=== PATIENT | female | born 1980 | race Caucasian/White ===

== ENCOUNTER 2019-12-21 22:37 | Emergency (ER) | payer BC ==
[2019-12-21] MEDS ORDERED: Ondansetron 4 MG Tab.DIS PO ONE ×2 (22:38→23:04)
[2019-12-21 22:40] VITALS: BP 122/62; PULSE 109
[2019-12-21] MEDS ORDERED: Acetaminophen 500 MG Tab PO ONE (23:04)
--- NOTE | 2019-12-21 23:11 | EDM.PDOC ---
ED HPI GENERAL MEDICAL PROBLEM - General Chief Complaint: General Stated Complaint: fever,cough,nausea,malaise Time Seen by Provider: 12/21/19 23:00 Source of Information: Reports: Patient History Limitations: Reports: No Limitations - History of Present Illness INITIAL COMMENTS - FREE TEXT/NARRATIVE: This patient is a 39 year old female that presents to the ER. Patient reports that on Sunday she didnt feel great, then today at 4pm "hit me like a ton of bricks". She reports that she started to have headache, body aches, congestion, nonproductive cough, nausea, vomiting, abdominal pain from vomiting, fever. 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 Also, patient reports her daughter has same symptoms. Onset Date: 12/19/19 Duration: Day(s): (2), Getting Worse Quality: Reports: Ache Severity: Moderate Improves with: Reports: None Worsens with: Reports: None Associated Symptoms: Reports: Cough, Fever/Chills, Headaches, Loss of Appetite, Malaise, Nausea/Vomiting. 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 Generalized Pain Score (Numeric/FACES): 8 - Related Data Allergies Allergy/AdvReac Type Severity Reaction Status Date / Time Sulfa (Sulfonamide Allergy Swelling Verified 12/21/19 22:41 Antibiotics) Home Meds: Home Meds Venlafaxine HCl [Venlafaxine ER] 1 cap PO DAILY 12/21/19 [History] Ondansetron [Zofran ODT] 4 mg PO Q6H PRN #20 tab.dis 12/22/19 [Rx] Oseltamivir [Tamiflu] 75 mg PO BID #9 cap 12/22/19 [Rx] Past Medical History Genitourinary History: Reports: Renal Calculus, UTI, Recurrent Other Genitourinary History: pt states that she generally has multiple bladder infections per year 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 Denies: Sputum Cardiovascular: Reports: No Symptoms Endocrine: Reports: No Symptoms GI/Abdominal: Reports: Abdominal Pain, Nausea, Vomiting. Denies: Diarrhea : Reports: No Symptoms Musculoskeletal: Reports: Other (body aches) Skin: Reports: No Symptoms Neurological: Reports: Headache. Denies: Confusion Psychiatric: Reports: No Symptoms Hematologic/Lymphatic: Reports: No Symptoms Immunologic: Reports: No Symptoms ED EXAM, GENERAL - Physical Exam Exam: See Below Exam Limited By: No Limitations General Appearance: Alert, WD/WN, No Apparent Distress, Other (acutely ill) Eye Exam: Bilateral Eye: Normal Inspection, PERRL Ears: Normal External Exam, Normal Canal, Hearing Grossly Normal, Normal TMs Ear Exam: Bilateral Ear: Auricle Normal, Canal Normal, TM normal Nose: Normal Inspection, Normal Mucosa, No Blood Throat/Mouth: Normal Inspection, Normal Lips, Normal Teeth, Normal Gums, Normal Oropharynx, Normal Voice, No Airway Compromise Head: Atraumatic, Normocephalic Neck: Normal Inspection, Supple, Non-Tender, Full Range of Motion Respiratory/Chest: No Respiratory Distress, Lungs Clear, Normal Breath Sounds, No Accessory Muscle Use Cardiovascular: Normal Peripheral Pulses, No Edema, No Gallop, No JVD, No Murmur , No Rub, Tachycardia (106 on exam) GI/Abdominal: Normal Bowel Sounds, Soft, No Organomegaly, No Distention, No Abnormal Bruit, No Mass, Pelvis Stable, Tender (LLQ mild. ). No: Guarding, Rigid, Rebound Back Exam: Normal Inspection, Full Range of Motion. No: CVA Tenderness (L), CVA Tenderness (R) Extremities: Normal Inspection, Normal Range of Motion, Non-Tender, No Pedal Edema, Normal Capillary Refill Neurological: Alert, Oriented Psychiatric: Normal Affect, Normal Mood Skin Exam: Warm, Dry, Intact, Normal Color, No Rash Lymphatic: No Adenopathy Course - Vital Signs Last Recorded V/S: Last Vital Signs Temp 102.6 F H 12/21/19 23:55 Pulse 109 H 12/21/19 22:37 Resp 16 12/21/19 22:37 BP 122/62 12/21/19 22:37 Pulse Ox 98 12/21/19 22:37 - Orders/Labs/Meds Orders: Active Orders 24 hr Category Date Time Status Oseltamivir [Tamiflu] Med 12/22/19 00:19 Once 75 mg PO ONETIME ONE Sodium Chloride 0.9% [Normal Saline] 1,000 ml Med 12/21/19 23:29 Active IV .BOLUS Medication Orders Sodium Chloride (Normal Saline) 1,000 mls @ 1,000 mls/hr IV .BOLUS ONE Stop: 12/22/19 00:28 Last Admin: 12/21/19 23:41 Dose: 1,000 mls/hr Labs: Laboratory Tests 12/21/19 12/21/19 12/21/19 Range/Units 23:21 23:21 23:30 WBC 5.4 (5.0-10.0) 10^3/uL RBC 4.22 (4.00-5.50) 10^6/uL Hgb 13.0 (12.0-16.0) g/dL Hct 38.8 (37.0-47.0) % MCV 91.9 (82.0-94.0) fL MCH 30.8 (27.0-32.0) pg MCHC 33.5 (33.0-38.0) g/dL RDW Coeff of Cecilia 12.6 (11.0-15.0) % Plt Count 164 (150-400) 10^3/uL Neut % (Auto) 80.8 (35-85) % Lymph % (Auto) 9.1 L (10-55) % [place] % (Auto) 9.7 (0-16) % Eos % (Auto) 0.2 (0-5) % Baso % (Auto) 0.2 (0-3) % Neut # (Auto) 4.33 (1.80-7.00) 10^3/uL Lymph # (Auto) 0.49 L (1.00-4.80) 10^3/uL [place] # (Auto) 0.52 (0.00-0.80) 10^3/uL Eos # (Auto) 0.01 (0.00-0.45) 10^3/uL Baso # (Auto) 0.01 10^3/uL Sodium 139 (136-145) mEq/L Potassium 3.3 L (3.5-5.0) mEq/L Chloride 102 (98-106) mEq/L Carbon Dioxide 24 (21-32) mmol/L BUN 9 (7-18) mg/dL Creatinine 0.7 (0.6-1.0) mg/dL Est Cr Clr Drug Dosing 117.39 mL/min Estimated GFR (MDRD) > 60 (>=60) mL/min Glucose 107 H (75-99) mg/dL Calcium 7.8 L (8.4-10.1) mg/dL Total Bilirubin 0.3 (0.0-1.0) mg/dL AST 18 (15-37) U/L ALT 16 (12-78) U/L Alkaline Phosphatase 54 (46-116) U/L Total Protein 6.6 (6.4-8.2) g/dL Albumin 3.5 (3.4-5.0) g/dL Amylase 42 (25-115) U/L Lipase 56 L (73-393) U/L Urine Color Yellow (YELLOW) Urine Appearance Clear (CLEAR) Urine pH 8.5 H (4.5-8.0) Ur Specific [place] 1.020 (1.003-1.020) Urine Protein Negative (NEGATIVE) mg/dL Urine Glucose (UA) Negative (NEGATIVE) mg/dL Urine Ketones Negative (NEGATIVE) mg/dL Urine Occult Blood Trace-intact H (NEGATIVE) Urine Nitrite Negative (NEGATIVE) Urine Bilirubin Negative (NEGATIVE) Urine Urobilinogen 1.0 (0.2-1.0) EU/dL Ur Leukocyte Esterase Negative (NEGATIVE) Meds: Medications Generic Name Dose Route Start Last Admin Trade Name Freq PRN Reason Stop Dose Admin Sodium Chloride 1,000 mls @ 1,000 mls/hr 12/21/19 23:29 12/21/19 23:41 Normal Saline IV 12/22/19 00:28 1,000 mls/hr .BOLUS ONE Administration Discontinued Medications Generic Name Dose Route Start Last Admin Trade Name Freq PRN Reason Stop Dose Admin Acetaminophen 1,000 mg 12/21/19 23:04 12/21/19 23:12 Tylenol Extra Strength PO 12/21/19 23:05 1,000 mg ONETIME ONE Administration Ondansetron HCl 4 mg 12/21/19 23:04 12/21/19 23:12 Zofran Odt PO 12/21/19 23:05 4 mg ONETIME ONE Administration Ondansetron HCl 1 packet 12/22/19 00:18 Take Home: Ondansetron Odt 4 Mg, 2 Tab Pack PO 12/22/19 00:19 ONETIME ONE Departure - Departure Time of Disposition: 00:20 Disposition: Home, Self-Care 01 Condition: Fair Clinical Impression: Viral gastroenteritis - Discharge Information *PRESCRIPTION DRUG MONITORING PROGRAM REVIEWED*: Not Applicable *COPY OF PRESCRIPTION DRUG MONITORING REPORT IN PATIENT KELVIN: Not Applicable Prescriptions: Ondansetron [Zofran ODT] 4 mg PO Q6H PRN #20 tab.dis PRN Reason: Nausea/Vomiting Oseltamivir [Tamiflu] 75 mg PO BID #9 cap Instructions: Viral Gastroenteritis, Adult, Influenza, Adult, [id number] Referrals: PCP,None [Primary Care Provider] - Forms: ED Department Discharge Additional Instructions: Followup with your primary care provider Return to the ER for worsening of condition or any emergent concerns Increase fluids Over the counter medications Tylenol or Motrin for fever Tamiflu 75mg 1 pill twice a day for 5 days Sent to pharmacy Zofran 4mg 1 pill every 6 hours as needed for nausea or vomiting dissolve under the tongue #20 no refill sent to pharmacy #2 take home Sepsis Event Note - Evaluation Sepsis Screening Result: Possible Sepsis Risk - Focused Exam Vital Signs: Vital Signs Temp Temp Pulse Resp BP Pulse Ox 12/21/19 23:55 102.6 F H 12/21/19 23:12 102.4 F H 102.4 F H 12/21/19 22:37 102.3 F H 109 H 16 122/62 98 Date Exam was Performed: 12/22/19 Time Exam was Performed: 00:19 - My Orders Last 24 Hours: My Active Orders 12/21/19 23:29 Sodium Chloride 0.9% [Normal Saline] 1,000 ml IV .BOLUS 12/22/19 00:19 Oseltamivir [Tamiflu] 75 mg PO ONETIME ONE - Assessment/Plan Last 24 Hours: My Active Orders 12/21/19 23:29 Sodium Chloride 0.9% [Normal Saline] 1,000 ml IV .BOLUS 12/22/19 00:19 Oseltamivir [Tamiflu] 75 mg PO ONETIME ONE Plan: PLEASE SEE RN NOTE FOR PFSH
[2019-12-21] MEDS ORDERED: Sodium Chloride 0.9% 1,000 ML IV ONE (23:29)
[2019-12-21 23:44] LABS: CHLORIDE,CL 102 mEq/L (98-106); SODIUM,NA 139 mEq/L (136-145)
[2019-12-22] MEDS ORDERED: Take Home: Ondansetron 4 MG Tab.DIS, 2 Tab Pack PO ONE (00:18)
[2019-12-22] MEDS ORDERED: Oseltamivir 75 MG Cap PO ONE (00:19)
== END 2019-12-22 00:50 | disposition home or self-care (01) ==
LOC: CC.ED 22:37
DX: A08.4 Viral intestinal infection, unspecified (principal); F32.9 Major depressive disorder, single episode, unspecified; Z79.899 Other long term (current) drug therapy; Z88.2 Allergy status to sulfonamides
CPT/HCPCS: 36415; 80053; 81003; 82150; 83690; 85025; 87804; 96360; 99284-25; A9270-GY; J7030

== ENCOUNTER 2020-04-30 09:04 | Emergency (ER) | payer BC ==
[2020-04-30 09:18] VITALS: BP 130/75; PULSE 88
[2020-04-30 10:01] LABS: CHLORIDE,CL 104 mEq/L (98-106); SODIUM,NA 138 mEq/L (136-145)
--- NOTE | 2020-04-30 10:33 | EDM.PDOC ---
ED HPI GENERAL MEDICAL PROBLEM - General Chief Complaint: General Stated Complaint: SIDE PAIN Time Seen by Provider: 04/30/20 09:31 Source of Information: Reports: Patient History Limitations: Reports: No Limitations - History of Present Illness INITIAL COMMENTS - FREE TEXT/NARRATIVE: Shena is a 39 yo female with no significant PMH who presents to the Ed with c/o pain under left breast. She reports pain began during the night last night and has continued since. She reports that pain is worse with deep breathing. Rates pain 5/10 at rest and 9/10 with deep breathing. She reports sharp pain when taking a deep breath and burning/aching pain constant. She denies any other CP, fever, malaise, shortness of breath, N/V/D, urinary symptoms, hematuria. Denies any other symptoms. She has not tried anything for the pain. Onset Date: 04/30/20 Duration: Constant Location: Reports: Other (under left breast, radiating around to left side) Front/Back Body Image: 1 - pain Quality: Reports: Ache, Burning, Sharp (intermittently) Improves with: Reports: None Worsens with: Reports: Breathing Associated Symptoms: Reports: No Other Symptoms. Denies: Confusion, Chest Pain, Cough, Diaphoresis, Fever/Chills, Headaches, Loss of Appetite, Malaise, Nausea/Vomiting, Shortness of Breath, Weakness Left Upper Breast Pain Score (Numeric/FACES): 5 - Related Data Allergies Allergy/AdvReac Type Severity Reaction Status Date / Time Sulfa (Sulfonamide Allergy Swelling Verified 04/30/20 09:11 Antibiotics) Home Meds: Home Meds Venlafaxine HCl [Venlafaxine ER] 1 cap PO BEDTIME 12/21/19 [History] Pantoprazole Sodium [Protonix] 40 mg PO DAILY #30 tablet. 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 ED EXAM, GENERAL - Physical Exam Exam: See Below Exam Limited By: No Limitations General Appearance: Alert, WD/WN, No Apparent Distress Eye Exam: Bilateral Eye: EOMI, PERRL Throat/Mouth: Normal Inspection, Normal Lips, Normal Teeth, Normal Gums, Normal Oropharynx, Normal Voice, No Airway Compromise Head: Atraumatic, Normocephalic Neck: Normal Inspection, Supple, Non-Tender, Full Range of Motion Respiratory/Chest: No Respiratory Distress, Lungs Clear, Normal Breath Sounds, No Accessory Muscle Use, Chest Non-Tender Cardiovascular: Normal Peripheral Pulses, Regular Rate, Rhythm, No Edema, No Ga llop, No JVD, No Murmur, No Rub GI/Abdominal: Normal Bowel Sounds, Soft, Tender (epigastric ). No: Guarding, Rigid, Rebound Back Exam: Normal Inspection, Full Range of Motion. No: CVA Tenderness (L), CVA Tenderness (R), Decreased Range of Motion, Muscle Spasm, Paraspinal Tenderness, Vertebral Tenderness Extremities: Normal Inspection, Normal Range of Motion, Non-Tender, Normal Capillary Refill, No Pedal Edema Neurological: Alert, Oriented, CN II-XII Intact, Normal Cognition, Normal Gait, Normal Reflexes, No Motor/Sensory Deficits Psychiatric: Normal Affect, Normal Mood Skin Exam: Warm, Dry, Intact, Normal Color, No Rash Lymphatic: No Adenopathy Course - Vital Signs Last Recorded V/S: Last Vital Signs Temp 98.0 F 04/30/20 09:13 Pulse 88 04/30/20 09:13 Resp 16 04/30/20 09:13 BP 130/75 04/30/20 09:13 Pulse Ox 98 04/30/20 09:13 - Orders/Labs/Meds Labs: Laboratory Tests 04/30/20 04/30/20 04/30/20 Range/Units 09:28 09:40 09:40 WBC 6.5 (5.0-10.0) 10^3/uL RBC 4.56 (4.00-5.50) 10^6/uL Hgb 14.1 (12.0-16.0) g/dL Hct 41.6 (37.0-47.0) % MCV 91.2 (82.0-94.0) fL MCH 30.9 (27.0-32.0) pg MCHC 33.9 (33.0-38.0) g/dL RDW Coeff of Cecilia 12.3 (11.0-15.0) % Plt Count 212 (150-400) 10^3/uL Neut % (Auto) 66.0 (35-85) % Lymph % (Auto) 24.3 (10-55) % [place] % (Auto) 7.6 (0-16) % Eos % (Auto) 1.9 (0-5) % Baso % (Auto) 0.2 (0-3) % Neut # (Auto) 4.27 (1.80-7.00) 10^3/uL Lymph # (Auto) 1.57 (1.00-4.80) 10^3/uL [place] # (Auto) 0.49 (0.00-0.80) 10^3/uL Eos # (Auto) 0.12 (0.00-0.45) 10^3/uL Baso # (Auto) 0.01 10^3/uL PT (9.7-12.3) SEC INR (0.92-1.18) D-Dimer, Quantitative (0.00-0.50) Sodium 138 (136-145) mEq/L Potassium 3.8 (3.5-5.0) mEq/L Chloride 104 (98-106) mEq/L Carbon Dioxide 25 (21-32) mmol/L BUN 11 (7-18) mg/dL Creatinine 0.6 (0.6-1.0) mg/dL Est Cr Clr Drug Dosing 136.95 mL/min Estimated GFR (MDRD) > 60 (>=60) mL/min Glucose 91 (75-99) mg/dL Calcium 8.6 (8.4-10.1) mg/dL Total Bilirubin 0.5 (0.0-1.0) mg/dL AST 15 (15-37) U/L ALT 18 (12-78) U/L Alkaline Phosphatase 55 (46-116) U/L Lactate Dehydrogenase 114 (100-190) U/L Creatine Kinase 57 (21-215) U/L Troponin I < 0.017 (0.00-0.06) ng/mL C-Reactive Protein < 0.2 L (0.2-0.8) mg/dL Total Protein 7.3 (6.4-8.2) g/dL Albumin 3.8 (3.4-5.0) g/dL Amylase 46 (25-115) U/L Lipase 51 L (73-393) U/L Urine Color Yellow (YELLOW) Urine Appearance Clear (CLEAR) Urine pH 7.0 (4.5-8.0) Ur Specific [place] 1.025 H (1.003-1.020) Urine Protein Negative (NEGATIVE) mg/dL Urine Glucose (UA) Negative (NEGATIVE) mg/dL Urine Ketones Negative (NEGATIVE) mg/dL Urine Occult Blood Trace-lysed H (NEGATIVE) Urine Nitrite Negative (NEGATIVE) Urine Bilirubin Negative (NEGATIVE) Urine Urobilinogen 0.2 (0.2-1.0) EU/dL Ur Leukocyte Esterase Negative (NEGATIVE) Urine RBC 0-5 (0-5) /HPF Urine WBC Not seen (0-5) /HPF Ur Epithelial Cells Moderate H (NOT SEEN) /HPF 04/30/20 Range/Units 09:40 WBC (5.0-10.0) 10^3/uL RBC (4.00-5.50) 10^6/uL Hgb (12.0-16.0) g/dL Hct (37.0-47.0) % MCV (82.0-94.0) fL MCH (27.0-32.0) pg MCHC (33.0-38.0) g/dL RDW Coeff of Cecilia (11.0-15.0) % Plt Count (150-400) 10^3/uL Neut % (Auto) (35-85) % Lymph % (Auto) (10-55) % [place] % (Auto) (0-16) % Eos % (Auto) (0-5) % Baso % (Auto) (0-3) % Neut # (Auto) (1.80-7.00) 10^3/uL Lymph # (Auto) (1.00-4.80) 10^3/uL [place] # (Auto) (0.00-0.80) 10^3/uL Eos # (Auto) (0.00-0.45) 10^3/uL Baso # (Auto) 10^3/uL PT 10.3 (9.7-12.3) SEC INR 1.02 (0.92-1.18) D-Dimer, Quantitative 0.19 (0.00-0.50) Sodium (136-145) mEq/L Potassium (3.5-5.0) mEq/L Chloride (98-106) mEq/L Carbon Dioxide (21-32) mmol/L BUN (7-18) mg/dL Creatinine (0.6-1.0) mg/dL Est Cr Clr Drug Dosing mL/min Estimated GFR (MDRD) (>=60) mL/min Glucose (75-99) mg/dL Calcium (8.4-10.1) mg/dL Total Bilirubin (0.0-1.0) mg/dL AST (15-37) U/L ALT (12-78) U/L Alkaline Phosphatase (46-116) U/L Lactate Dehydrogenase (100-190) U/L Creatine Kinase (21-215) U/L Troponin I (0.00-0.06) ng/mL C-Reactive Protein (0.2-0.8) mg/dL Total Protein (6.4-8.2) g/dL Albumin (3.4-5.0) g/dL Amylase (25-115) U/L Lipase (73-393) U/L Urine Color (YELLOW) Urine Appearance (CLEAR) Urine pH (4.5-8.0) Ur Specific [place] (1.003-1.020) Urine Protein (NEGATIVE) mg/dL Urine Glucose (UA) (NEGATIVE) mg/dL Urine Ketones (NEGATIVE) mg/dL Urine Occult Blood (NEGATIVE) Urine Nitrite (NEGATIVE) Urine Bilirubin (NEGATIVE) Urine Urobilinogen (0.2-1.0) EU/dL Ur Leukocyte Esterase (NEGATIVE) Urine RBC (0-5) /HPF Urine WBC (0-5) /HPF Ur Epithelial Cells (NOT SEEN) /HPF Meds: Medications Discontinued Medications Generic Name Dose Route Start Last Admin Trade Name Nisa PRN Reason Stop Dose Admin Al Hydroxide/Mg Hydroxide 30 0 ml 04/30/20 10:30 04/30/20 10:35 ml/ Lidocaine HCl 15 ml PO 04/30/20 10:31 45 ml ONETIME ONE Administration - Re-Assessments/Exams Free Text/Narrative Re-Assessment/Exam: 04/30/20 10:33 Discussed normal lab, EKG, and chest xray findings with patient. Pending radiology report. Discussed possible ulceration/GERD as cause of pain. Will trial GI cocktail. 04/30/20 11:15 Patient reports improvement in pain. Reports she no longer has pain at rest. Continues to have pain with deep breathing, but it has improved from 07/22 to 03/21. Discussed that with improvement with GI cocktail and epigastric pain, cee anderson due to reflux. Departure - Departure Time of Disposition: 11:18 Disposition: Home, Self-Care 01 Condition: Good Clinical Impression: GERD with esophagitis - Discharge Information *PRESCRIPTION DRUG MONITORING PROGRAM REVIEWED*: Not Applicable *COPY OF PRESCRIPTION DRUG MONITORING REPORT IN PATIENT KELVIN: Not Applicable Prescriptions: Sucralfate [Carafate] 1 gm PO QIDACANDBED #120 tablet Pantoprazole Sodium [Protonix] 40 mg PO DAILY #30 tablet. Instructions: Food Choices for Gastroesophageal Reflux Disease, Adult, [id number], Gastroesophageal Reflux Disease, Adult, [id number] Referrals: Zuleyka Crowley PA-C [Primary Care Provider] - Forms: ED Department Discharge Additional Instructions: - Start Protonix (pantoprazole) 40 mg daily. Recommend continuing this for the next 4-6 weeks. - Start Carafate 4x/day before meals and at bedtime - May use Maalox or Mylanta as needed for pain/discomfort - Avoid alcohol, spicy foods, caffeine, and chocolate. Try to stay upright at least 30 minutes after eating - Follow up with PCP for recheck if symptoms worsen or do not seem to be improving with above recommendations Sepsis Event Note (ED) - Evaluation Sepsis Screening Result: No Definite Risk - Problem List & Annotations (1) GERD with esophagitis SNOMED Code(s): 212605143 Code(s): K21.0 - GASTRO-ESOPHAGEAL REFLUX DISEASE WITH ESOPHAGITIS Status: Acute (2) Lesion of lung SNOMED Code(s): 910513871 Code(s): R91.1 - SOLITARY PULMONARY NODULE Status: Acute - Assessment/Plan Plan: Patient presented to ED with c/o pain under her left breast, wrapping around her left side. Pain woke patient up from sleep. Labs and EKG unremarkable. Patient declined pain medication while awaiting results. Patient was given GI cocktail and had improvement in pain. Reported constant pain was relieved, but continued with sharp pain at times. Discussed that with tenderness noted in epigastric area, I feel it is reasonable to treat for gastritis. Discussed dietary recommendations. Patient will be discharged home on Protonix and Carafate. She is advised to follow up with her PCP or return to ED if symptoms worsen or do not seem to be improving. Radiologist report on CXR, which was pending at time of discharge, reports abnormality near left anterior 1st rib. This is not in area of patient's pain and is rather incidental findings. Per radiologist recommendation, will proceed with chest CT to r/o mass. Will contact patient and arrange for this as outpatient.
[2020-04-30] MEDS: Alum Hydrox/Mag Hydrox/Simeth 30 ML, Lidocaine 2% 15 ML PO ONE ×2 (10:35)
== END 2020-04-30 11:27 | disposition home or self-care (01) ==
LOC: CC.ED 09:04
DX: K21.0 Gastro-esophageal reflux disease with esophagitis (principal); F32.9 Major depressive disorder, single episode, unspecified; Z90.710 Acquired absence of both cervix and uterus; Z87.891 Personal history of nicotine dependence; Z88.2 Allergy status to sulfonamides; Z79.899 Other long term (current) drug therapy
CPT/HCPCS: 36415; 71046; 80053; 81001; 82150; 82550; 83615; 83690; 84484; 85025; 85379; 85610; 86140; 93005; 99284-25; A9270-GY

== ENCOUNTER 2021-11-14 20:10 | Emergency (ER) | payer BC ==
[2021-11-14 20:31] VITALS: BP 128/84; PULSE 72
[2021-11-14] MEDS ORDERED: Bacitracin/Neomycin/Polymyxin B Oint 0.9 GM U/D Packet TOP ONE (20:44)
--- NOTE | 2021-11-14 20:58 | EDM.PDOC ---
ED HPI GENERAL MEDICAL PROBLEM - General Chief Complaint: General Stated Complaint: cyst removed and its bleeding Time Seen by Provider: 11/14/21 20:30 Source of Information: Reports: Patient History Limitations: Reports: No Limitations - History of Present Illness INITIAL COMMENTS - FREE TEXT/NARRATIVE: Shena is a 41 yo female who presents to the ED with complaints of bleeding from her left arm. She had a cyst removed in the clinic today and states she was cooking this evening and felt blood down her arm. She felt it was a lot of blood and came in to the ER. The bleeding had stopped now. She states her arm is sore as well. 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 ED EXAM, GENERAL - Physical Exam Exam: See Below Exam Limited By: No Limitations General Appearance: Alert, WD/WN, No Apparent Distress Skin Exam: Wound/Incision (Incision to left posterior arm shows no current bleeding. Sutures intact. No significant hematoma palpated. Tenderness noted with palpation. ) Course - Vital Signs Last Recorded V/S: Last Vital Signs Temp 98.1 F 11/14/21 20:29 Pulse 72 11/14/21 20:29 Resp 15 11/14/21 20:29 BP 128/84 11/14/21 20:29 Pulse Ox 99 11/14/21 20:29 - Orders/Labs/Meds Meds: Medications Discontinued Medications Generic Name Dose Route Start Last Admin Trade Name Freq PRN Reason Stop Dose Admin Neomycin/Polymyxin/Bacitracin 1 each 11/14/21 20:44 11/14/21 20:50 Bacitracin/Neomycin/Polymyxin B Oint 0.9 Gm U/D Packet TOP 11/14/21 20:45 1 each ONETIME ONE Administration Departure - Departure Time of Disposition: 20:58 Disposition: Home, Self-Care 01 Clinical Impression: Postoperative bleeding from incision - Discharge Information Referrals: Zuleyka Crowley PA-C [Primary Care Provider] - Additional Instructions: 1) Keep compression bandage in place as discussed 2) Keep wound clean and dry as well. 3) If bleeding would happen to start up again, advise holding compression and if unable to control, return to ED. 4) Recommend taking 1000mg of Tylenol with 400-60mg of ibuprofen every 6 hours as needed for discomfort. Sepsis Event Note (ED) - Evaluation Sepsis Screening Result: No Definite Risk - Focused Exam Vital Signs: Vital Signs Temp Pulse Resp BP Pulse Ox 11/14/21 20:29 98.1 F 72 15 128/84 99 - Problem List & Annotations (1) Postoperative bleeding from incision SNOMED Code(s): 608645561 Code(s): [id number] - Status: Acute Current Visit: Yes - Assessment/Plan Plan: Bleeding was controlled upon my arrival. Discussed any further treatment if Shena to include deep sutures to close the space, discussed into detail vs compression dressing. Shena wished to try compression dressing. Triple antibiotic applied with pressure dressing. No complications.
== END 2021-11-14 21:05 | disposition home or self-care (01) ==
LOC: CC.ED 20:10
DX: L76.21 Postprocedural hemorrhage of skin and subcutaneous tissue following a dermatologic procedure (principal); Z88.2 Allergy status to sulfonamides
CPT/HCPCS: 99283